=== PATIENT | male | born 1965 | race Caucasian/White ===

== ENCOUNTER 2016-08-05 19:17 | Emergency (ER) | payer OTHER ==
[~2016-08-05] VITALS: Ht 177.8 cm; Wt 100.5 kg
[2016-08-05 19:54] VITALS: Ht 177.8 cm; Wt 100.5 kg
[2016-08-05] MEDS ORDERED: ONDANSETRON (ODT) 4 MG TAB ODT STA (20:57)
[2016-08-05] MEDS ORDERED: HYDROCODONE/APAP (10/325) TAB PO ONE (21:00)
[2016-08-05] MEDS ORDERED: DIPHTH/TET/ACEL PERTUSS (ADULT) 0.5 ML VIAL IM* ONE (21:00)
[2016-08-05] MEDS ORDERED: HYDR-902 PO (21:43)
[2016-08-05 21:56] VITALS: BP 139/66; PULSE 78; TEMP 99.1
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
--- NOTE | 2016-08-05 22:36 | RADRPT ---
PROCEDURE: XR Left Forearm forearm CLINICAL INDICATION: Left arm pain TECHNIQUE: AP and lateral radiographs were submitted. COMPARISON: None FINDINGS: Osseous structures: There is a nondisplaced fracture involving the ulnar styloid process. The osseo us elements otherwise appear intact. There is a large spur extending dorsally off the olecranon. T here is a spur extending laterally off the base of the first metacarpal. Joint spaces: are well maintained with no significant erosion or spurring evident. There is no sig nificant joint effusion Soft tissues: There is soft tissue prominence about the wrist. IMPRESSION: 1. Nondisplaced ulnar styloid fracture. 2. Large posterior olecranon spur. 3. A spur is seen extend laterally off the base of the first metacarpal. 4. Soft tissue swelling seen about the wrist. Physician Chilango Date Time Electronically viewed and signed by Physician Chilango on 08/05/2016 22:35 /
== END 2016-08-05 21:58 | disposition home or self-care (01) ==
LOC: FTE 19:17
DX: S52.615A Nondisplaced fracture of left ulna styloid process, initial encounter for closed fracture (principal); S69.92XA Unspecified injury of left wrist, hand and finger(s), initial encounter; V48.4XXA Person boarding or alighting a car injured in noncollision transport accident, initial encounter; Z23 Encounter for immunization
CPT/HCPCS: 29125; 73090; 90471; 90715; Z7502; Z7610

== ENCOUNTER 2016-08-14 01:40 | Emergency (ER) | payer SELFPAY ==
[~2016-08-14] VITALS: Ht 182.9 cm; Wt 100.5 kg
[~2016-08-14 01:40] MED LIST: HYDR-902 PO
[2016-08-14 01:45] VITALS: Ht 182.9 cm; Wt 100.5 kg
== END 2016-08-14 06:07 | disposition left against medical advice (07) ==
LOC: E/R 01:40
DX: Z53.21 Procedure and treatment not carried out due to patient leaving prior to being seen by health care provider (principal)

== ENCOUNTER 2018-11-30 15:52 | Emergency (ER) | payer OTHER ==
[~2018-11-30] VITALS: Wt 89.0 kg
[~2018-11-30 15:52] MED LIST changes: +HYDR-3980 PO; -HYDR-902 PO
[2018-11-30] MEDS ORDERED: FLUORESCEIN STRIP LEFT EYE ONE (16:30)
[2018-11-30] MEDS ORDERED: TETRACAINE 0.5% 4 ML OPH LEFT EYE ONE (16:30)
[2018-11-30] MEDS ORDERED: ERYTHROMYCIN 1 GM OPH OINT LEFT EYE ONE (16:30)
--- NOTE | 2018-11-30 16:37 | ERD ---
ER Documentation Chief Complaint Chief Complaint RIGHT EYE POSSIBLE FB HPI 53-year-old male presents complaint of foreign body in his left eye. Patient states that he was drilling a ceiling a stand he felt some debris in him in the eye. Denies any current pain but does state that is uncomfortable when he blinks. Denies any treatments. Denies any vision problems, bleeding, discharge. ROS All systems reviewed and are negative except as per history of present illness. Medications Home Meds Active Scripts Hydrocodone/Acetaminophen ([place] 10-325 Tablet) 1 Each Tablet, 1 TAB PO Q6H PRN for PAIN, #12 TAB Prov:ORAL BISWAS MD 08/05/16 Allergies Allergies: Coded Allergies: No Known Allergy (Unverified , 08/05/16) PMhx/Soc History of Surgery: No Anesthesia Reaction: No Hx Neurological Disorder: No Hx Respiratory Disorders: No Hx Cardiac Disorders: No Hx Psychiatric Problems: No Hx Miscellaneous Medical Probl: No Hx Alcohol Use: No Hx Substance Use: No Hx Tobacco Use: No FmHx Family History: No diabetes, No coronary disease, No other Physical Exam Vitals Vital Signs Date Temp Pulse Resp B/P (MAP) Pulse Ox O2 O2 Flow FiO2 Time Delivery Rate 11/30/18 98.1 90 18 162/67 99 15:55 (98) Physical Exam Const: No acute distress Head: Atraumatic Eyes: Sclera of left eye is injected. EOMs intact. PERRLA. Small half a millimeter piece of debris noted under the eyelid of left eye. No obvious globe laceration. ENT: Normal External Ears, Nose and Mouth. Neck: Full range of motion. No meningismus. Resp: Clear to auscultation bilaterally Cardio: Regular rate and rhythm, no murmurs Abd: Soft, non tender, non distended. Normal bowel sounds Skin: No petechiae or rashes Back: No midline or flank tenderness Ext: No cyanosis, or edema Neur: Awake and alert Psych: Normal Mood and Affect Eye Exam w/ Wood's Lamp - bilateral: Visual Acuity: Visual Stewart: Intact in all four quadrants bilaterally Lac ducts/glands: No swelling Lids w/ evertion: Normal, no foreign body Conj/[place]: Clear, negative Fluorescein/Jayla's Anterior Chamber: Clear Tonopen readings: Retina exam: No obvious abnormality Results 24 hrs Current Medications Medications Dose Sig/Michell Start Time Status Last (Trade) Ordered Route PRN Stop Time Admin Dose Reason Admin Fluorescein 1 strip ONCE ONCE 11/30/18 DC Sodium LEFT EYE 16:30 (Cznsn-G-Ybys 11/30/18 16:31 p) Tetracaine 1 drop ONCE ONCE 11/30/18 DC HCl LEFT EYE 16:30 (Tetracaine 11/30/18 16:31 0.5% Steri-Unit Siri) 1 applic ONCE ONCE 11/30/18 DC Erythromycin LEFT EYE 16:30 11/30/18 16:31 (Erythromycin Oph Oint) Procedures/MDM MDM: Patient's left eyelid was everted and there was a small half a millimeter piece of debris noted. Patient's is actually taken out with a Q-tip. Matt lamp exam nation was performed results within normal limits as described on the physical exam. Low suspicion for globe rupture, corneal laceration, corneal abrasion, hyphema, or any other emergent condition. Patient given erythromycin in the ER as well as prescription for erythromycin. Patient advised follow-up with ophthalmology within 24 hours. Patient discharged with strict ER precautions. Patient advised to follow up with PMD. All questions answered at discharge. Departure Diagnosis: Primary Impression: Foreign body of eyelid, left Condition: Stable CY VERDE November 30, 2018 16:37
[2018-11-30] MEDS ORDERED: HYDROCODONE/APAP (10/325) TAB PO ONE (18:30)
[2018-11-30] MEDS ORDERED: OXYC-279 PO (19:22)
[2018-11-30] MEDS ORDERED: IBUP-1542 PO (19:22)
[2018-11-30] MEDS ORDERED: ERYT1OIN6 BOTH EYES (19:22)
[2018-11-30 19:29] VITALS: BP 132/66; PULSE 59; RESP 18
[2018-12-01] MEDS ORDERED: IBUP-1542 PO (15:08)
== END 2018-11-30 19:30 | disposition home or self-care (01) ==
LOC: FTE 15:52
DX: T15.12XA Foreign body in conjunctival sac, left eye, initial encounter (principal); X58.XXXA Exposure to other specified factors, initial encounter; Y92.9 Unspecified place or not applicable
CPT/HCPCS: 65205; Z7610

== ENCOUNTER 2018-12-01 13:01 | Emergency (ER) | payer OTHER ==
[~2018-12-01] VITALS: Ht 172.7 cm; Wt 98.5 kg
[~2018-12-01 13:01] MED LIST changes: +ERYT1OIN6 BOTH EYES; +IBUP-1542 PO; +OXYC-279 PO
[2018-12-01 13:35] VITALS: BP 141/62; PULSE 57; RESP 16; Ht 172.7 cm; Wt 98.5 kg
--- NOTE | 2018-12-01 14:25 | ERD ---
ER Documentation Chief Complaint Chief Complaint LT KNEE PAIN S/P FALLING FROM 2ND STEP HPI Patient is a 53-year-old male with no past medical history presents the ER for concerns of left knee pain after falling off the second step of the ladder. Patient states he landed on his knee. Patient states he is unable to bend his knee secondary to pain. Patient denies any fevers or chills. Patient is being able to ablate secondary to pain. Patient denies any previous fractures or dislocations. Patient denies any neck pain or back pain. Patient was seen here yesterday and diagnosed with a foreign body of his eyelid. Patient states pain is improving. Patient has not followed up with eye doctor yet. ROS All systems reviewed and are negative except as per history of present illness. Medications Home Meds Active Scripts Ibuprofen* (Motrin*) 600 Mg Tab, 600 MG PO Q6, #30 TAB Prov:JAROD OLIVEIRA PA-C 12/01/18 Ibuprofen* (Motrin*) 600 Mg Tab, 600 MG PO Q6, #30 TAB Prov:YC VERDE 11/30/18 Oxycodone HCl/Acetaminophen (Percocet 5-325 mg Tablet) 1 Each Tablet, 1-2 EACH PO Q6 for pain, #10 TAB Prov:CY VERDE 11/30/18 Erythromycin Base (Erythromycin) 1 Gm Oint...g., 1 APPLIC BOTH EYES Q4H for 7 Days Prov:CY VERDE 11/30/18 Hydrocodone/Acetaminophen ([place] 10-325 Tablet) 1 Each Tablet, 1 TAB PO Q6H PRN for PAIN, #12 TAB Prov:ORAL BISWAS MD 08/05/16 Allergies Allergies: Coded Allergies: No Known Allergy (Unverified , 11/30/18) PMhx/Soc History of Surgery: No Anesthesia Reaction: No Hx Neurological Disorder: No Hx Respiratory Disorders: No Hx Cardiac Disorders: No Hx Psychiatric Problems: No Hx Miscellaneous Medical Probl: No Hx Alcohol Use: No Hx Substance Use: No Hx Tobacco Use: No FmHx Family History: No diabetes Physical Exam Vitals Vital Signs Date Temp Pulse Resp B/P (MAP) Pulse Ox O2 O2 Flow FiO2 Time Delivery Rate 12/01/18 98.5 57 16 141/62 96 13:35 (88) Physical Exam GENERAL: Well-developed, well-nourished male. Appears in no acute distress. HEAD: Normocephalic, atraumatic. EYES: Pupils are equally reactive bilaterally. EOMs grossly intact. No conjunctival erythema. NECK: Supple. No meningismus. Normal range of motion of the neck. EXTREMITIES: Equal pulses bilaterally. No peripheral clubbing, cyanosis or edema. No unilateral leg swelling NEUROLOGIC: Alert and oriented. Moving all four extremities without any difficulty. Normal speech. SKIN: Normal color. Warm and dry. No rashes or lesions. LLE: No deformity, erythema, ecchymosis. mild swelling noted to the medial aspect of the knee. Tender to palpation over the medial aspect. Decreased ran ge of motion secondary to pain. Nontender to palpation of the distal tibia/fibula. Sensation intact to light touch. Neurovascularly intact. (Able to plantarflex, dorsiflex, olivier foot, invert foot, raise big toe.) 2+ DP and DT pulses. Procedures/MDM x ED COURSE: The patient was stable throughout ED course. I kept the patient and/or family informed of laboratory and diagnostic imaging results throughout the ED course. DIAGNOSTIC IMAGING: Read by radiologist. Patient: СВЕТЛАНА VEGA : 1965 Age: 53 Sex: M MR #: [id number] DOS: 12/01/18 1420 Ordering MD: JAROD OLIVEIRA PA-C Location: E/R Room/Bed: PROCEDURE: XR knee CLINICAL INDICATION: Left knee pain. TECHNIQUE: Three views of the left knee were obtained. COMPARISON: None. FINDINGS: There is no acute fracture or dislocation. Osseous structures are intact. There are mild to moderate osteoarthritic changes of the knee, most notable at the medial tibio-femoral compartment. There is a moderate size knee joint effusion. IMPRESSION: 1. Wjko-as-isldrngx osteoarthritis, most notable at the medial tibio-femoral compartment. 2. Moderate sized knee joint effusion. RPTAT:AAEE Physician Delio Date Time Electronically viewed and signed by Physician Delio on 12/01/2018 15:03 RM/ CC: JAROD OLIVEIRA PA-C [id number] PROCEDURES: SPLINT APPLICATION: The patient was verbally consented at bedside prior to splint application. Patient was explained the risks, benefits and alternatives to this procedure. The patient was neurovascularly intact prior to and status post application of the splint. The patient tolerated the procedure well with no complications. Splint type: MAICO wrap Extremity: left knee Indication: 1. Uyhg-fe-pzztsguh osteoarthritis, most notable at the medial tibi o-femoral compartment. 2. Moderate sized knee joint effusion. MEDICAL DECISION MAKING: This is a 53-year-old male presents the ER for concerns of left knee pain. Vital signs were reviewed. Patient was afebrile. Xrays showed 1. Kjvo-zl-eusvhhqb osteoarthritis, most notable at the medial tibio-femoral compartment. 2. Moderate sized knee joint effusion. No fracture dislocation was noted. Patient was advised to follow-up with medicaid collection specialist. Unable to rule out ligament or tendon injuries at this time. Patient was given an [place] wrap. Patient was offered crutches however he states he has crutches at home. At this time, patient presentation is most consistent with left knee pain. Low suspicion for femur fracture, patella fracture, tibial plateau fracture, septic joint, gout, popliteal cyst, prepatellar bursitis, patellofemoral syndrome, patellar tendinitis, Latonya-Schlatter disease, DVT or compartment syndrome. At this time, unable to rule out any meniscus and knee ligament injuries. PRESCRIPTIONS: Ibuprofen Patient was given oxycodone yesterday. Patient advised to take this medication as needed for pain. DISCHARGE: At this time, patient is stable for discharge and outpatient management. RICE therapy and ROM exercises were advised to avoid stiffness. I have instructed the patient to follow-up with his/her primary care physician in 1-2 days. I have discussed with the patient the possibility of needing to see an medicaid collection specialist for further workup and imaging if the pain persists. I have instructed the patient to promptly return to the ER for any new or worsening symptoms including increased pain, swelling, redness, warmth or fever. The patient and/or family expressed understanding of and agreement with this plan. All questions were answered. Home care instructions were provided. Disclaimer: Inadvertent spelling and grammatical errors are likely due to EHR/dictation software use and do not reflect on the overall quality of patient care. Also, please note that the electronic time recorded on this note does not necessarily reflect the actual time of the patient encounter. Departure Diagnosis: Primary Impression: Knee pain Chronicity: acute Laterality: left Qualified Codes: M25.562 - Pain in left knee Condition: Fair Patient Instructions: Knee Pain, Uncertain Cause Referrals: [facility] YOU HAVE RECEIVED A MEDICAL SCREENING EXAM AND THE RESULTS INDICATE THAT YOU DO NOT HAVE A CONDITION THAT REQUIRES URGENT TREATMENT IN THE EMERGENCY DEPARTMENT. FURTHER EVALUATION AND TREATMENT OF YOUR CONDITION CAN WAIT UNTIL YOU ARE SEEN IN YOUR DOCTORS OFFICE WITHIN THE NEXT 1-2 DAYS. IT IS YOUR RESPONSIBILITY TO MAKE AN APPOINTMENT FOR FOLOW-UP CARE. IF YOU HAVE A PRIMARY DOCTOR --you should call your primary doctor and schedule an appointment IF YOU DO NOT HAVE A PRIMARY DOCTOR YOU CAN CALL OUR PHYSICIAN REFERRAL HOTLINE AT IF YOU CAN NOT AFFORD TO SEE A PHYSICIAN YOU CAN CHOSE FROM THE FOLLOWING [facility] [address] [facility]. [facility] [address] [facility]. [facility] [address] [facility] [facility] [address] [facility] [facility] [address] [facility]. [facility]. [address] [facility]. [facility] YOU HAVE RECEIVED A MEDICAL SCREENING EXAM AND THE RESULTS INDICATE THAT YOU DO NOT HAVE A CONDITION THAT REQUIRES URGENT TREATMENT IN THE EMERGENCY DEPARTMENT. FURTHER EVALUATION AND TREATMENT OF YOUR CONDITION CAN WAIT UNTIL YOU ARE SEEN IN YOUR DOCTORS OFFICE WITHIN THE NEXT 1-2 DAYS. IT IS YOUR RESPONSIBILITY TO MAKE AN APPOINTMENT FOR FOLOW-UP CARE. IF YOU HAVE A PRIMARY DOCTOR --you should call your primary doctor and schedule and appointment IF YOU DO NOT HAVE A PRIMARY DOCTOR YOU CAN CALL OUR PHYSICIAN REFERRAL HOTLINE AT . IF YOU CAN NOT AFFORD TO SEE A PHYSICIAN YOU CAN CHOSE FROM THE FOLLOWING [facility] INSTITUTIONS: [facility] [address] [place] [address] [facility] [address] [place] [address] [facility] [address] [place] [address] Additional Instructions: Necesita va leo specialista de orthopedico para otro examen. Llame al doctor MAANA y paco leo ZIA PARA DENTRO DE 1-2 QUINONEZ.Dgale a la secretaria que nosotros le instruimos hacer esta zia.Avise o llame si liu condicin se empeora antes de la zia. Regresa aqui si peor o no mejor. JAROD OLIVEIRA PA-C December 01, 2018 14:24
[2018-12-01] MEDS ORDERED: IBUP-1542 PO (15:08)
== END 2018-12-01 15:08 | disposition home or self-care (01) ==
LOC: E/R 13:01
DX: M25.562 Pain in left knee (principal)
CPT/HCPCS: 73562; Z7502